=== PATIENT | female | born 1975 | race Hispanic/Latino ===

== ENCOUNTER 2024-01-17 13:56 | Outpatient (CLI) | payer MEDICARE | END 2024-01-17 13:57 | disposition home or self-care (01) | LOC: CSHWCC 13:56 | PROVIDERS: ATTEND Nurse Practitioner Family | DX: M14.671 Charcot's joint, right ankle and foot (principal); E11.40 Type 2 diabetes mellitus with diabetic neuropathy, unspecified | CPT/HCPCS: 99213; G0463 ==